=== PATIENT | female | born 1975 | race Hispanic/Latino ===

== ENCOUNTER 2018-02-12 10:19 | Emergency (ER) | payer OTHER ==
[~2018-02-12] VITALS: Ht 160 cm; Wt 79.6 kg
[~2018-02-12 10:19] MED LIST: ADVAIR DISK2 IN; BUSPIRONE HCL10 MG PO; CIPRO500 MG OR; FLEXERIL5 MG PO; HYDROCHLOROT12.5 M1 PO; LORATADINE10 M1 PO; LORTAB 5 OR; LORTAB 7.5 PO; LYRICA50 MG PO; MACROBID100 MG PO; MACRODANTIN100 MG PO; MONTELUKAST SOD10 MG PO; MOTRIN800 MG/TAB PO; NAPROSYN500 MG PO; PENICILLN VK500 MG PO; PRENATABS RX OR; PREVACID30 M1 PO; PREVPAC PO; PRILOSEC20 MG/CAP PO; PROAIR HFA IN; SINGULAIR10 MG OR; ULTRAM50 MG; ULTRAM50 MG PO; VICODIN1 TAB PO; ZANTAC150 M1 OR
[2018-02-12] MEDS ORDERED: PREDNISONE50 MG PO (11:44)
[2018-02-12 12:07] VITALS: BP 141/82
== END 2018-02-12 12:12 | disposition home or self-care (01) | DRG 556 ==
LOC: ED 10:19
DX: M25.522 Pain in left elbow (principal); M25.521 Pain in right elbow